=== PATIENT | male | born 1995 | race Caucasian/White ===

== ENCOUNTER 2016-04-04 22:02 | Emergency (ER) | payer OTHER ==
[~2016-04-04] VITALS: Ht 165.1 cm; Wt 65.8 kg
[2016-04-04] MEDS ORDERED: NKM (22:48)
[2016-04-05] MEDS ORDERED: IBUPROFEN600 MG ORAL (00:40)
[2016-04-05 00:49] VITALS: BP 142/86
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
--- NOTE | 2016-04-05 12:01 | Diagnostic Imaging Report ---
Indications: PAIN Technique: Three views of the right knee Comparison: None Findings: No acute fractures. No dislocations. Joint spaces are preserved. No radiopaque foreign body. Normal mineralization. Impression: Negative This agrees with the preliminary interpretation provided by the emergency room physician
== END 2016-04-05 00:51 | disposition home or self-care (01) ==
LOC: EMR 23:57
DX: S80.01XA Contusion of right knee, initial encounter (principal); S83.91XA Sprain of unspecified site of right knee, initial encounter; V49.9XXA Car occupant (driver) (passenger) injured in unspecified traffic accident, initial encounter; Y93.9 Activity, unspecified; Y92.9 Unspecified place or not applicable; Y99.9 Unspecified external cause status; M25.561 Pain in right knee
CPT/HCPCS: 99283